=== PATIENT | male | born 1960 | race Caucasian/White ===

== ENCOUNTER 2021-06-30 14:15 | Inpatient (IN) | payer OTHER ==
[~2021-06-30] VITALS: Ht 172.7 cm; Wt 90.0 kg
[2021-06-30 14:20] VITALS: BP 106/69
[2021-06-30 14:43] LABS: BILIRUBIN Negative (Negative); BLOOD Negative (Negative); CLARITY Clear (Clear); COLOR Yellow (Yellow); GLUCOSE Negative (Negative); KETONE Negative (Negative); LEUKO ESTERASE Negative (Negative); NITRITE Negative (Negative); SPECIFIC GRAVITY 1.015 (1.001-1.030)
[2021-06-30 14:57] LABS: BASO % 0.4 % (0.0-1.0); EOS # 0.1 10*3/uL (0.0-0.4); EOS % 2.7 % (1.0-4.0); HEMATOCRIT 42.2 % (42.0-52.0); LYMPH # 1.6 10*3/uL (1.3-4.4); LYMPH % 35.5 % (27.0-41.0); MEAN CELL VOLUME 96.3 fl (80.0-94.0); MEAN CORPUSCULAR HGB 32.6 pg (27.0-31.0); MEAN CORPUSCULAR HGB CONC 33.9 g/dl (33.0-37.0); MEAN PLATELET VOLUME 9.9 fl (9.6-12.3); MONO # 0.5 10*3/uL (0.1-1.0); MONO % 11.3 % (3.0-9.0); NEUT # 2.3 10*3/uL (2.3-7.9); NEUT % 49.9 % (47.0-73.0); PLATELET COUNT AUTOMATED 141 10*3/uL (130-400); RED BLOOD COUNT 4.38 10*6/uL (4.50-5.90); RED CELL DISTRI WIDTH 12.6 % (0-14.5); WHITE BLOOD COUNT 4.5 10*3/uL (4.8-10.8)
[2021-06-30 15:01] LABS: URINE AMPHETAMINES < 1000 (1000ng/ml); URINE BARBITURATES > 200 (200ng/ml); URINE BENZODIAZEPINES < 200 (200ng/ml); URINE CANNABINOIDS (THC) < 50 (50ng/ml); URINE COCAINE < 300 (300ng/ml); URINE METHADONE < 300 (300ng/ml); URINE OPIATES < 300 (300ng/ml)
[2021-06-30 15:05] LABS: URINE PHENCYCLIDINE < 25 (25ng/ml)
[2021-06-30 15:08] LABS: RBC 0-2 rbc/hpf (0-2); WBC 0-2 wbc/hpf (0-5)
[2021-06-30 15:15] LABS: ALKALINE PHOSPHATASE 65 U/L (45-117); BUN 13 mg/dl (7-24); CHLORIDE 112 mmol/L (98-107); CREATININE 0.91 mg/dL (0.70-1.30); POTASSIUM 3.7 mmol/L (3.5-5.1); SGOT/AST 12 IU/L (3-35); SGPT/ALT 17 U/L (12-78); SODIUM 144 mmol/L (136-145); TOTAL PROTEIN 6.1 gm/dL (6.4-8.2)
[2021-06-30 17:37] VITALS: BP 105/72
[2021-06-30] MEDS ORDERED: DEPAKOTE500 MG PO (18:31)
[2021-06-30] MEDS ORDERED: KLONOPIN1 M1 PO (18:32)
[2021-06-30] MEDS ORDERED: GEODON20 MG PO ×2 (18:33→21:08)
[2021-06-30] MEDS ORDERED: PHENOBARBITAL30 MG PO (18:34)
[2021-06-30] MEDS ORDERED: KEPPRA500 MG PO (18:38)
[2021-06-30] MEDS ORDERED: VISTARIL50 MG PO ×2 (18:45→18:46)
[2021-06-30 20:00] VITALS: BP 115/60
[2021-06-30] MEDS ORDERED: EXELON1 EACH T (21:04)
[2021-06-30] MEDS ORDERED: DEPAKOTE250 MG PO (21:04)
[2021-06-30] MEDS ORDERED: GEODON60 MG PO (21:06)
[2021-06-30] MEDS ORDERED: GEODON40 MG PO (21:06)
[2021-06-30] MEDS ORDERED: GEODON20 MG/1 ML IM (21:09)
[2021-07-01 07:13] LABS: THYROID STIM HORMONE (HS) 1.76 uIU/ml (0.358-4.75); VALPROIC ACID (DEPAKENE) 19.4 ug/ml (50-100)
[2021-07-01 07:51] VITALS: BP 113/72
[2021-07-01 20:00] VITALS: BP 113/68
[2021-07-02 07:42] VITALS: BP 107/58
[2021-07-02 19:25] VITALS: BP 117/86
[2021-07-03 07:44] VITALS: BP 126/80
[2021-07-03 20:00] VITALS: BP 105/68
[2021-07-04 07:28] VITALS: BP 103/58
[2021-07-04 20:00] VITALS: BP 113/86
[2021-07-05 07:42] VITALS: BP 115/61
[2021-07-05 20:00] VITALS: BP 113/68
[2021-07-06 08:12] VITALS: BP 115/83
[2021-07-06 10:42] LABS: BASO % 0.4 % (0.0-1.0); EOS # 0.1 10*3/uL (0.0-0.4); EOS % 2.2 % (1.0-4.0); HEMATOCRIT 46.1 % (42.0-52.0); LYMPH # 1.4 10*3/uL (1.3-4.4); LYMPH % 27.6 % (27.0-41.0); MEAN CELL VOLUME 97.5 fl (80.0-94.0); MEAN CORPUSCULAR HGB 33.2 pg (27.0-31.0); MEAN CORPUSCULAR HGB CONC 34.1 g/dl (33.0-37.0); MEAN PLATELET VOLUME 10.2 fl (9.6-12.3); MONO # 0.5 10*3/uL (0.1-1.0); MONO % 10.7 % (3.0-9.0); NEUT % 58.7 % (47.0-73.0); PLATELET COUNT AUTOMATED 143 10*3/uL (130-400); RED BLOOD COUNT 4.73 10*6/uL (4.50-5.90)
[2021-07-06 11:03] LABS: ALKALINE PHOSPHATASE 66 U/L (45-117); BUN 13 mg/dl (7-24); CHLORIDE 108 mmol/L (98-107); CREATININE 0.82 mg/dL (0.70-1.30); POTASSIUM 3.7 mmol/L (3.5-5.1); SGOT/AST 19 IU/L (3-35); SGPT/ALT 17 U/L (12-78); SODIUM 143 mmol/L (136-145); TOTAL PROTEIN 6.9 gm/dL (6.4-8.2)
[2021-07-06 20:00] VITALS: BP 137/83
[2021-07-07 08:11] VITALS: BP 100/66
[2021-07-07 20:00] VITALS: BP 97/69
[2021-07-08 07:27] VITALS: BP 108/70
[2021-07-08 19:04] VITALS: BP 125/70
[2021-07-09 08:00] VITALS: BP 102/71
[2021-07-09 19:22] VITALS: BP 114/63
[2021-07-10 08:00] VITALS: BP 139/72
[2021-07-10 19:07] VITALS: BP 128/80
[2021-07-11 07:33] VITALS: BP 102/64
[2021-07-11 08:00] VITALS: BP 102/64
[2021-07-11 20:00] VITALS: BP 128/86
[2021-07-12 07:36] VITALS: BP 105/66
[2021-07-12 20:00] VITALS: BP 137/82
[2021-07-13 07:48] VITALS: BP 110/70
[2021-07-13 20:00] VITALS: BP 120/73
[2021-07-14 08:00] VITALS: BP 122/81
[2021-07-14] MEDS ORDERED: ZIPRASIDONE HCL40 MG PO (08:29)
[2021-07-14] MEDS ORDERED: DIVALPROEX SOD125 M1 PO ×2 (08:29)
[2021-07-14] MEDS ORDERED: MEMANTINE HCL10 MG PO (08:29)
[2021-07-14] MEDS ORDERED: NATURE'S BLEND F1 MG PO (08:31)
[2021-07-14] MEDS ORDERED: VITAMIN D3125 MC1 PO (08:31)
[2021-07-14] MEDS ORDERED: VITAMIN B1250 MCG PO (08:33)
== END 2021-07-14 10:50 | DRG 885 ==
LOC: ED 14:15 → 3N 16:00
PROVIDERS: Counselor Professional; Internal Medicine; Psychiatry & Neurology Psychiatry; ADMIT Psychiatry & Neurology Psychiatry; ATTEND Psychiatry & Neurology Psychiatry
DX: F23 Brief psychotic disorder (principal); F63.81 Intermittent explosive disorder; F02.81 Dementia in other diseases classified elsewhere, unspecified severity, with behavioral disturbance; G40.909 Epilepsy, unspecified, not intractable, without status epilepticus; Z20.822 Contact with and (suspected) exposure to COVID-19; E83.41 Hypermagnesemia; Z51.5 Encounter for palliative care; E87.8 Other disorders of electrolyte and fluid balance, not elsewhere classified; G30.9 Alzheimer's disease, unspecified; D72.819 Decreased white blood cell count, unspecified; Z66 Do not resuscitate; Z88.0 Allergy status to penicillin; Z88.2 Allergy status to sulfonamides; Z88.8 Allergy status to other drugs, medicaments and biological substances; Z79.899 Other long term (current) drug therapy